=== PATIENT | female | born 1995 | race Caucasian/White ===

== ENCOUNTER → 2019-09-05 14:58 | Outpatient (BNVA) | payer SELFPAY | PROVIDERS: Family Provider Nurse Practitioner; PCP Nurse Practitioner; Visit Provider Nurse Practitioner | DX: R35.0 Frequency of micturition (principal); Z12.4 Encounter for screening for malignant neoplasm of cervix; Z11.3 Encounter for screening for infections with a predominantly sexual mode of transmission; N72 Inflammatory disease of cervix uteri | CPT/HCPCS: 81000; 87491; 87591; 88175 ==

== ENCOUNTER → 2020-01-05 15:03 | Outpatient (BNVA) | payer OTHER, SELFPAY | PROVIDERS: Family Provider Nurse Practitioner; PCP Nurse Practitioner; Visit Provider Nurse Practitioner Family | DX: Z11.59 Encounter for screening for other viral diseases (principal) | CPT/HCPCS: 87635 ==

== ENCOUNTER → 2020-02-25 13:03 | Outpatient (BNVA) | payer OTHER, SELFPAY | PROVIDERS: Family Provider Nurse Practitioner; PCP Nurse Practitioner; Visit Provider Nurse Practitioner | DX: Z11.59 Encounter for screening for other viral diseases (principal) | CPT/HCPCS: 87635 ==

== ENCOUNTER 2021-11-30 19:04 | Emergency (ER) | payer OTHER, SELFPAY ==
[2021-11-30 19:07] VITALS: BP 123/51; PULSE 100; RESP 16; TEMP 36.5; O2SAT 100
--- NOTE | 2021-11-30 19:21 | W.ED.HA ---
HPI - Headache General: Chief Complaint: Headache Stated Complaint: dizzy, headache Time Seen by Provider: 11/30/21 19:19 History of Present Illness: 25-year-old female comes in today for complaints of severe headache. Patient reports that this is the worst headache she is ever had. Patient does occasionally get headaches. Grandmother reports that she often gets headaches and thinks that patient might need to have preventative medication. Patient is recently just moved back to [place]. Patient denies any fever or chills. Patient does report light sensitivity, blurry vision, nausea and vomiting. Associated symptoms: Deny fever(s) Review of Systems Const: Denies: fever(s) Eyes: Reports: blurry vision Musc: Reports: neck pain Neuro: Reports: headache(s) PFSH ED PFSH: Medical History (Updated 11/30/21 @ 21:00 by GERARDO Carranza) Situational anxiety Surgical History No history of previous surgery Family History Other Diabetes Heart disease Hyperlipidemia Hypertension Denies family history of Bleeding disorder Social History Smoking and tobacco status: current every day smoker e-cigarettes Second hand smoke exposure: No Smoking risk assessment/counseling performed?: No Alcohol intake: current Alcohol intake frequency: holidays/special occasions only Desire information about alcohol rehabilitation?: No Counseling given: No Desire information about substance/drug rehabilitation?: No Counseling given: No Adopted: No Caregiver/support person: No Lives independently: Yes Household members: family Housing: House Marital status: Single Number of children: 0 Highest education level completed: High School Graduate service: No Current occupational status: employed Pets and animals: Yes History of recent travel: No Current gender identity: Female Female Reproductive History: Date of last menstrual period: 09/15/19 Physical Exam Const: COMMON NORMALS: alert HENMT: COMMON NORMALS: normocephalic HEAD & SCALP: normocephalic Neck/C-Spine: COMMON NORMALS: full ROM CERVICAL SPINE: No Cervical spine tenderness and Yes Paracervical muscle tenderness Resp: COMMON NORMALS: normal respiratory effort Cardio: COMMON NORMALS: regular rate RATE: regular rate GI: COMMON NORMALS: Soft to palpation and non-tender PALPATION: Yes Soft to palpation Extremity: COMMON NORMALS: full ROM and no pedal edema Neuro: SENSORIUM/ORIENTATION: Yes alert Skin: COMMON NORMALS: no rashes or lesions noted GENERAL SKIN EXAM: no rashes or lesions noted Course Vital Signs: Vital signs: Vital Signs Temperature 97.7 F 11/30/21 19:07 Pulse Rate 94 11/30/21 20:38 Respiratory Rate 18 11/30/21 20:38 Blood Pressure 132/64 11/30/21 20:38 Pulse Oximetry 100 11/30/21 20:38 Oxygen Delivery Me thod 11/30/21 19:07 MDM - Headache Medical Decision Making Patient comes in today with worsening normal headache. Patient states that she occasionally will get headache with the last 1 being 3 weeks ago. Patient reports that this headache is more severe with blurring of vision and light sensitivity along with nausea and vomiting. On exam patient some paraspinous muscle tenderness. Respirations are even lungs are clear to auscultation. No focal deficits neural deficits are noted. No meningeal signs are noted. Vital signs are normal. Differential diagnosis includes tension headache, migraine headache, malingering, intracranial mass or bleeding. Patient had resolution of headache after being given 10 mg of Reglan, 15 mg of Toradol, and 6 mg of dexamethasone IV. CT of the head was unremarkable. CBC CMP and hCG were unremarkable. Recommended patient follow-up with primary care for further evaluation and consideration of prophylaxis therapy. Patient reported understanding agreed to plan. Lab Data : 11/30/21 19:40 11/30/21 19:[address] 11/30/21 19:25 IMPRESSION: No CT evidence of acute intracranial pathology. Laboratory Results WBC 10.7 10^3/uL (4.0-10.0) H 11/30/21 19:40 RBC 4.38 10^6/uL (4.1-5.3) 11/30/21 19:40 Hgb 12.9 g/dL (11.5-15.3) 11/30/21 19:40 Hct 39.6 % (37.0-47.0) 11/30/21 19:40 MCV 90.4 fl (81-99) 11/30/21 19:40 MCH 29.5 pg (28.0-34.0) 11/30/21 19:40 MCHC 32.6 g/dL (30.0-36.0) 11/30/21 19:40 RDW 12.4 % (12.1-15.1) 11/30/21 19:40 Plt Count 318 10^3/cmm (130-400) 11/30/21 19:40 MPV 9.7 fL (7.4-10.4) 11/30/21 19:40 Neut % (Auto) 76.6 % 11/30/21 19:40 Lymph % (Auto) 16.3 % 11/30/21 19:40 [place] % (Auto) 5.1 % 11/30/21 19:40 Eos % (Auto) 1.2 % 11/30/21 19:40 Baso % (Auto) 0.5 % 11/30/21 19:40 Neut # (Auto) 8.16 10^3/uL (1.8-7.7) H 11/30/21 19:40 Lymph # (Auto) 1.7 10^3/uL (0.8-4.8) 11/30/21 19:40 [place] # (Auto) 0.5 10^3/uL (0.2-0.9) 11/30/21 19:40 Eos # (Auto) 0.1 10^3/uL (0.0-0.8) 11/30/21 19:40 Baso # (Auto) 0.1 10^3/uL (0.0-0.1) 11/30/21 19:40 Nucleated RBC % (auto) 0 % 11/30/21 19:40 Nucleated RBCs # 0.0 /100WBC 11/30/21 19:40 Sodium 140 mmol/L (136-145) 11/30/21 19:40 Potassium 3.9 mmol/L (3.5-5.1) 11/30/21 19:40 Chloride 103 mmol/L (98-107) 11/30/21 19:40 Carbon Dioxide 22 mmol/L (22-29) 11/30/21 19:40 Anion Gap 18.9 (5-19) 11/30/21 19:40 BUN 8 mg/dL (6-20) 11/30/21 19:40 Creatinine 0.7 mg/dL (0.5-0.9) 11/30/21 19:40 GFR Calculation 102.8 mL/min (90-130) 11/30/21 19:40 Glucose 91 mg/dL (65-115) 11/30/21 19:40 Calculated Osmolality 288 mOsm/kg (285-295) 11/30/21 19:40 Calcium 9.3 mg/dL (8.5-10.5) 11/30/21 19:40 Total Bilirubin 0.2 mg/dL (0.15-1.2) 11/30/21 19:40 AST 16 U/L (0-32) 11/30/21 19:40 ALT 14 U/L (0-33) 11/30/21 19:40 Alkaline Phosphatase 125 IU/L (35-105) H 11/30/21 19:40 Total Protein 7.1 g/dL (6.6-8.7) 11/30/21 19:40 Albumin 4.3 g/dL (3.5-5.2) 11/30/21 19:40 Globulin 2.8 g/dL (1.3-4.6) 11/30/21 19:40 HCG, Qual Negative (Negative) 11/30/21 19:40 Discharge Plan Discharge Patient Disposition: Home Clinical Impression: Migraine Qualifiers: Migraine type: unspecified Status migrainosus presence: without status migrainosus Intractability: not intractable Qualified Code(s): G43.909 - Migraine, unspecified, not intractable, without status migrainosus Condition: Stable Prescriptions: No Action metronidazole [Metrogel Vaginal] 0.75 % gel 1 appful VAGINAL DAILY 5 Days Qty: 70 0RF etonogestrel-ethinyl estradiol [NuvaRing] 0.12-0.015 mg/24 hr ring 1 vag ring VAGINAL .wear for 3 weeks Qty: 3 3RF methylprednisolone [Medrol (Chago)] 4 mg tablets,dose pack See Rx Instructions PO PER PKG DIR Qty: 21 0RF Rx Instructions: PO PER PKG DIR Discharge Orders: Discharge ED (Routine); Ordered 11/30/21 Ordered By: Truman Saucedo Discharge Diet: Usual diet Discharge Activity: Increase activity as tolerated Patient Instructions: Headache - Migraine (Adult) Activity Restrictions/Additional Instructions: Drink plenty of fluids. Activity as tolerated. Continue with routine care as directed. Follow-up with primary care regarding concerns of recurrent migraines and possible prophylactic therapy. Return to ER for new concerns or worsening symptoms. Coding Level of Care Code ED Extraction Supervisor for Allen Fwmaikel Exam Comprehensive
--- NOTE | 2021-11-30 19:25 | CTR_ITS ---
PROCEDURE INFORMATION: Exam: CT Head Without Contrast Exam date and time: 11/30/2021 8:25 PM Age: 25 years old Clinical indication: Pain; Headache; Migraine; Additional info: Headache, severe TECHNIQUE: Imaging protocol: Computed tomography of the head without contrast. Axial, coronal and sagittal reformatted images were created and reviewed. Radiation optimization: All CT scans at this facility use at least one of these dose optimization techniques: automated exposure control; mA and/or kV adjustment per patient size (includes targeted exams where dose is matched to clinical indication); or iterative reconstruction. COMPARISON: No relevant prior studies available. RADIATION DOSE METRICS: Total DLP (mGy-cm): 952.62 FINDINGS: Brain: No CT evidence of acute intracranial hemorrhage or acute territorial infarction. No significant mass effect or midline shift. Basal cisterns patent. Cerebral ventricles: Normal in size and configuration. Paranasal sinuses: Unremarkable. No fluid levels. Mastoid air cells: Grossly unremarkable. Bones/joints: No acute osseous abnormality. Soft tissues: Grossly unremarkable. CT/CT head wo con* [id number] IMPRESSION: No CT evidence of acute intracranial pathology.
[2021-11-30] MEDS: ketorolac 30 mg/mL INJ 15 MG IVP (19:40)
[2021-11-30] MEDS: sodium chloride 0.9% 500 ML 999 ML IV (19:40)
[2021-11-30] MEDS: dexamethasone 10 mg/mL INJ 6 MG IVP (19:42)
[2021-11-30] MEDS: metoclopramide 5 mg/mL SDV 2 mL 10 MG IVP (19:44)
[2021-11-30 20:05] LABS: Basophils # 0.1 10^3/uL (0.0-0.1); Basophils % 0.5 %; Eosinophils # 0.1 10^3/uL (0.0-0.8); Eosinophils % 1.2 %; Hematocrit 39.6 % (37.0-47.0); Hemoglobin 12.9 g/dL (11.5-15.3); Lymphocytes # 1.7 10^3/uL (0.8-4.8); Lymphocytes % 16.3 %; Mean Corpuscular HGB Conc 32.6 g/dL (30.0-36.0); Mean Corpuscular Hemoglobin 29.5 pg (28.0-34.0); Mean Corpuscular Volume 90.4 fl (81-99); Mean Platelet Volume 9.7 fL (7.4-10.4); Monocytes # 0.5 10^3/uL (0.2-0.9); Monocytes % 5.1 %; Neutrophils # 8.16 10^3/uL (1.8-7.7); Neutrophils % 76.6 %; Nucleated Red Blood Cells % 0 %; Platelet Count 318 10^3/cmm (130-400); Red Blood Count 4.38 10^6/uL (4.1-5.3); Red Cell Distribution Width 12.4 % (12.1-15.1); White Blood Count 10.7 10^3/uL (4.0-10.0)
[2021-11-30 20:20] LABS: HCG, Serum Qual Negative (Negative)
[2021-11-30 20:28] LABS: Alanine Aminotransferase 14 U/L (0-33); Albumin Level 4.3 g/dL (3.5-5.2); Alkaline Phosphatase 125 IU/L (35-105); Anion Gap 18.9 (5-19); Aspartate Amino Transferase 16 U/L (0-32); Blood Urea Nitrogen 8 mg/dL (6-20); Calcium 9.3 mg/dL (8.5-10.5); Carbon Dioxide 22 mmol/L (22-29); Chloride 103 mmol/L (98-107); Globulin 2.8 g/dL (1.3-4.6); Glomerular Filtration Rate 102.8 mL/min (90-130); Glucose 91 mg/dL (65-115); Osmolality Calculated 288 mOsm/kg (285-295); Potassium 3.9 mmol/L (3.5-5.1); Sodium 140 mmol/L (136-145); Total Bilirubin 0.2 mg/dL (0.15-1.2); Total Protein 7.1 g/dL (6.6-8.7)
[2021-11-30 20:38] VITALS: BP 132/64; PULSE 94; RESP 18; O2SAT 100
[2021-11-30 21:21] VITALS: BP 116/71; PULSE 97; RESP 16; O2SAT 97
== END 2021-11-30 21:23 | disposition home or self-care (01) ==
PROVIDERS: Emergency Provider Nurse Practitioner Family
DX: G43.909 Migraine, unspecified, not intractable, without status migrainosus (principal); F17.290 Nicotine dependence, other tobacco product, uncomplicated
CPT/HCPCS: 70450; 80053; 84703; 85025; 96361; 96374; 96375; 99285; J1100; J1885; J2765; J7040

== ENCOUNTER 2022-05-12 15:10 | Outpatient (CLI) | payer OTHER, SELFPAY ==
--- NOTE | 2022-05-12 15:26 | XR_ITS ---
WS: [id number] Exam: XR finger RT min 2V 63950 Date/Time of Exam: 05/12/2022 3:30 PM Reason For Exam: S69.90XA - Unspecified injury of unspecified wrist, hand ... The right thumb is targeted for radiographic evaluation. No fracture or dislocation. Normal soft tiss ues. XR/XR finger RT min 2V 30075 IMPRESSION: 1. Normal right thumb.
== END 2022-05-12 15:11 | disposition home or self-care (01) ==
PROVIDERS: PCP Nurse Practitioner; Visit Provider Nurse Practitioner Family
DX: M79.646 Pain in unspecified finger(s) (principal); S69.90XA Unspecified injury of unspecified wrist, hand and finger(s), initial encounter; X58.XXXA Exposure to other specified factors, initial encounter
CPT/HCPCS: 73140

== ENCOUNTER → 2023-04-14 08:59 | Outpatient (BNVA) | payer OTHER, SELFPAY | PROVIDERS: PCP Nurse Practitioner; Visit Provider Family Medicine Adult Medicine | DX: Z20.822 Contact with and (suspected) exposure to COVID-19 (principal); J32.9 Chronic sinusitis, unspecified; J02.9 Acute pharyngitis, unspecified; R76.8 Other specified abnormal immunological findings in serum; U07.1 COVID-19; J30.9 Allergic rhinitis, unspecified; J01.40 Acute pansinusitis, unspecified; J30.2 Other seasonal allergic rhinitis | CPT/HCPCS: 87426 ==

== ENCOUNTER → 2023-05-26 15:45 | Outpatient (BNVA) | payer OTHER, SELFPAY | PROVIDERS: PCP Nurse Practitioner; Visit Provider Nurse Practitioner Family | DX: R50.9 Fever, unspecified (principal) | CPT/HCPCS: 87400 ==

== ENCOUNTER → 2023-06-11 16:36 | Outpatient (BNVA) | payer OTHER, SELFPAY | PROVIDERS: PCP Nurse Practitioner; Visit Provider Nurse Practitioner Family | DX: R25.1 Tremor, unspecified (principal) | CPT/HCPCS: 80053; 84443; 85025 ==

== ENCOUNTER 2023-06-19 09:29 | Emergency (ER) | payer OTHER, SELFPAY ==
[2023-06-19 09:31] VITALS: BP 120/78; PULSE 100; RESP 18; TEMP 36.6; O2SAT 99
--- NOTE | 2023-06-19 09:33 | ECG_ITS ---
[facility] Test Date: 2023-06-19 Pat Name: Aarti Patel Department: Room: Gender: Female Perforating Machine Operator: : 1995 Requested By: Romina Peralta Order Number: [id number] Meryl MD: Yaneth Hooker M.D. Measurements Intervals [place] Rate: 99 P: 34 LA: 108 QRS: 64 QRSD: 92 T: 0 QT: 320 QTc: 412 Interpretive Statements SINUS RHYTHM WITH SHORT LA INTERVAL NONSPECIFIC T-WAVE ABNORMALITY No previous ECG available for comparison Electronically Signed On 06-19-2023 18:02:52 SWIMMING TEACHER by Yaneth Hooker M.D. [id number]
--- NOTE | 2023-06-19 09:37 | XR_ITS ---
WS: [id number] Exam: XR chest 1V portable [id number] Date/Time of Exam: 06/19/2023 10:04 AM Reason For Exam: chest pain No priors. Findings: The lungs are clear and fully expanded. Costophrenic angles are sharp. No infiltrates. Bronchovascula r relief appears normal. Cardiac silhouette is unremarkable. Bony elements are intact. IMPRESSION: Unremarkable chest radiograph.
--- NOTE | 2023-06-19 09:44 | ED_ITS ---
HPI - Chest Pain General: Chief Complaint: Chest Pain Stated Complaint: Chest pains Time Seen by Provider: 06/19/23 09:30 Source: patient Mode of arrival: ambulatory Limitations: no limitations History of Present Illness: Patient is a 27-year-old female presents to ED today with multiple complaints. Patient states over the past several years, starting back when she was a teenager, she has had tremors. She states these are mainly located to her hands and arms but sometimes her legs will shake as well. She states she is not really had any formal evaluation for this. She states it causes her quite a bit of anxiety as people will comment on her shaking like a Chihuahua . She states she cannot cook at home because she cannot even hold a knife without cutting herself due to the tremors. She also has complaints of diffuse joint pains that have been present for a few years as well. She reports having to take Excedrin daily because otherwise the pains are crippling. She reports intermittent nausea and headaches. She believes she takes Topamax for her headaches. She does feel like her migraines are fairly well-controlled. She states over the past several weeks she has had intermittent episodes of chest pain and feeling like her heart is racing. She states she does wear an Apple Watch and the highest her heart rate has ever got was 120. Patient states she saw her PCP approximately week ago for some of the symptoms who ordered blood work as a starting point. Patient states she does struggle immensely with depression and anxiety. She feels like her symptoms have been unaffected by her anxiety/depression medication however does state when her mental health is not right her symptoms seem worse but they do not fully alleviate when she is clear headed . She follows up with Dr. Gomez at [facility]. She has seen a police chief deputy in the past regarding some intermittent rashes/hives and scalp changes. This was at [facility] in [place]. According to patient they pretty much told me I was allergic to myself . complaint: chest pain and other (tremor, headaches, nausea, joint pains) Onset (ago): month(s) Timing of current episode: episodic and constant Prior episodes: Yes Pain location: left chest Pain radiation: none Relieving factors: nothing Exacerbating factors: nothing Associated symptoms: Reports nausea and palpitations; Deny abdominal pain, dyspnea, fever(s), syncope or vomiting Risk Factors: Coronary artery disease risk factors: none Thoracic aortic dissection risk factors: none Related Data: On Oral Contraceptives: Yes Review of Systems Const: Denies: fever(s), chills or body aches Eyes: Denies: change in vision, blurry vision, photophobia, floaters or seeing flashes Card: Reports: chest pain and palpitations; Denies: irregular heart rhythm, edema, swelling of feet/ankles, lightheadedness, syncope, pre-syncope, dyspnea on exertion, orthopnea, leg pain with exertion or acrocyanosis Resp: Denies: dyspnea, productive cough or pain on inspiration GI: Reports: nausea; Denies: abdominal pain, vomiting, heartburn or diarrhea : Denies: flank pain, difficulty voiding, dysuria, urinary frequency, urinary urgency or urinary hesitancy Musc: Reports: joint pain; Denies: neck pain, back pain, joint swelling, joint redness, joint warmth or limited range of motion Skin/Breast: Reports: rash and pruritus Neuro: Reports: headache(s); Denies: numbness in extremities, weakness in extremities, sensory changes, lack of coordination, difficulty walking, dizziness or confusion PFSH ED PFSH: Medical History Allergic rhinitis due to allergen COVID SARS-CoV-2 antibody positive Pharyngitis Exposure to COVID-19 virus Psychiatric care Situational anxiety Surgical History No history of previous surgery Family History Other Diabetes Heart disease Hyperlipidemia Hypertension Denies family history of Bleeding disorder Physical Exam Const: COMMON NORMALS: no acute distress, average body habitus, patient oriented x3, no limitations, healthy appearing, alert and well nourished GENERAL APPEARANCE: cooperative and anxious (anxious and tearful at times during history) ORIENTATION/CONSCIOUSNESS: Yes awake, Yes oriented to person, Yes oriented to place and Yes oriented to time OTHER: significant resting tremor mainly noted to hands at times during her exami nation; the severity of the tremor does seem to fluctuate and at times is barely noticeable while at others it is significantly obvious HENMT: COMMON NORMALS: normocephalic and atraumatic HEAD & SCALP: normal to inspection, normocephalic and atraumatic FACE & SINUS: normal facial exam Eye: GENERAL EYE: appearance normal, both eyes and all related structures Neck/C-Spine: COMMON NORMALS: full ROM, no lymphadenopathy, supple and no meningeal signs Chest: COMMONS NORMALS: normal inspection of the chest OTHER: TTP L anterior chest wall tender to palpation Resp: COMMON NORMALS: normal respiratory effort and clear to auscultation bilaterally AUSCULTATION: clear to auscultation bilaterally Cardio: COMMON NORMALS: regular rate and regular rhythm RATE: regular rate RHYTHM: regular rhythm GI: COMMON NORMALS: Normal to inspection, nondistended, normoactive bowel sounds present, Soft to palpation, non-tender, No hepatosplenomegaly present and no masses PALPATION: Yes Soft to palpation and Yes No hepatosplenomegaly present : COMMON NORMALS: Yes no CVA tenderness BLADDER/KIDNEY EXAM: Yes no CVA tenderness Back/Pelvis: COMMON NORMALS: no CVA tenderness and thoracic and lumbar spine normal to inspection Extremity: COMMON NORMALS: normal to inspection GENERAL: Yes normal exam except as noted Neuro: DRAGAN COMA SCALE: document GCS findings Dragan coma scale eye opening: Spontaneous [place] coma scale verbal response: Orientated Dragan coma scale motor response: Obey commands Dragan coma scale total score: 15 COMMON NORMALS: patient oriented x3, CN's II-XII intact bilaterally, moves all extremities, no focal motor deficits, no sensory deficits noted and gait normal SENSORIUM/ORIENTATION: Yes alert, Yes oriented to person, Yes oriented to place and Yes oriented to time MENINGEAL SIGNS: Yes no meningeal signs Skin: COMMON NORMALS: no rashes or lesions noted GENERAL SKIN EXAM: no rashes or lesions noted Course Vital Signs: Vital signs: Vital Signs Temperature 97.8 F 06/19/23 09:31 Pulse Rate 100 06/19/23 09:31 Respiratory Rate 18 06/19/23 09:31 Blood Pressure 120/78 06/19/23 09:31 Pulse Oximetry 99 06/19/23 09:31 Oxygen Delivery Me thod Room Air 06/19/23 09:31 MDM - Chest Pain Medical Decision Making Patient is a 27-year-old female here for multiple complaints including a chronic tremor, migraine headaches, intermittent chest pains, and diffuse joint pains. Patient just had blood work consisting of a CBC, CMP, TSH ran through her primary care provider. These were reviewed and normal. I do not feel there is any benefit in repeating these labs today. I spent a considerable amount of time with patient during her history and examination. Her symptoms cause her considerable amount of distress. She is embarrassed by her tremor. She states she cannot even cook for herself at home because she cannot hold a knife secondary to the tremors in her hand. Her joint pain disables her from enjoying life. She has other nonspecific symptoms with the headaches, nausea, palpitations, intermittent chest pains, skin changes. From an ED standpoint this patient is clear for discharge however she does need follow-up in regards to her symptoms. Certainly she does have significant anxiety and depression as well as a diagnosis of PTSD and some of this could be manifestations of those however other etiologies need to be excluded. Her tremor seems to be her most bothersome and most prolonged symptom therefore we will start there. We did discuss starting propranolol today but ultimately I would like her to see neurology first. Case management referral has been placed for this. Recommend she continue following up with her PCP. We also did discuss possibly rheumatology evaluation at some point. Medical Records I reviewed the patient's medical records. Lab Data I reviewed the patient's lab results. XR interpretation done by ED provider, pending radiology final review Discharge Plan Discharge Condition: Stable Prescriptions: No Action topiramate [Topamax] 25 mg tablet 25 mg PO BID Qty: 60 4RF etonogestrel-ethinyl estradiol [NuvaRing] 0.12-0.015 mg/24 hr ring 1 vag ring VAGINAL .wear for 3 weeks Qty: 3 12RF fluoxetine [Prozac] 40 mg capsule 40 mg PO DAILY Qty: 30 2RF loratadine 10 mg tablet 10 mg PO DAILY PRN (Reason: allergy symptoms) Qty: 90 0RF Aspir-81 81 mg Tablet,Delayed Release (Dr/Ec) 81 mg PO DAILY PRN (Reason: Chest Pain) Excedrin Migraine 250-250-65 mg Tablet 1 tab PO Q6H PRN (Reason: headache pain) Referrals: Thania Sumner FNP-C [Primary Care Provider] - Coding Level of Care Code ED Blue Leather Setter for Allen Owen
--- NOTE | 2023-06-19 10:30 | PC.PHAR ---
According to fill dates, pt is non compliant on most medications. She states she forgets to take.
[2023-06-19 10:34] VITALS: BP 128/83; PULSE 85; RESP 16; O2SAT 96
--- NOTE | 2023-06-19 12:07 | DCPLANNER ---
Message was sent to neurology on 06/19/23 at 2600. [facility] to contact patient for appt.
--- NOTE | 2023-07-08 13:06 | DCPLANNER ---
Spoke with Cheryl in Neurology she will call patient today to get her scheduled-07/08/23 @2177
== END 2023-06-19 10:39 | disposition home or self-care (01) ==
PROVIDERS: Emergency Provider Physician Assistant; PCP Nurse Practitioner
DX: R07.9 Chest pain, unspecified (principal); R25.1 Tremor, unspecified; Z79.82 Long term (current) use of aspirin
CPT/HCPCS: 71045; 93005; 99284

== ENCOUNTER 2023-06-30 08:32 | Outpatient (CLI) | payer SELFPAY ==
[2023-06-30 09:02] LABS: HF Add Manual Diff No
[2023-06-30 09:04] LABS: Basophils % 0.5 %; Eosinophils # 0.1 10^3/uL (0.0-0.8); Eosinophils % 1.7 %; Hematocrit 40.1 % (36-47); Lymphocytes # 2.1 10^3/uL (0.8-4.8); Lymphocytes % 25.9 %; Mean Corpuscular HGB Conc 33.2 g/dL (30-55); Mean Corpuscular Hemoglobin 29.8 pg (27-33); Mean Corpuscular Volume 89.7 fl (85-98); Mean Platelet Volume 9.4 fL (7.4-10.4); Monocytes # 0.5 10^3/uL (0.2-0.9); Monocytes % 5.8 %; Neutrophils # 5.44 10^3/uL (1.8-7.7); Nucleated Red Blood Cells % 0 %; Platelet Count 239 10^3/cmm (157-399); Red Blood Count 4.47 10^6/uL (3.85-5.65); Red Cell Distribution Width 12.6 % (12.1-15.1); White Blood Count 8.25 10^3/uL (3.29-11.43)
[2023-06-30 10:13] LABS: Estmated Average Glucose 91; Hemoglobin A1C 4.8 % (4.0-6.0)
[2023-07-02 08:15] LABS: Alanine Aminotransferase 17 U/L (0-33); Alkaline Phosphatase 138 U/L (35-105); Aspartate Amino Transferase 17 U/L (0-32); Blood Urea Nitrogen 7 mg/dL (6-20); Calcium 8.9 mg/dL (8.5-10.5); Carbon Dioxide 23 mmol/L (22-29); Chloride 101 mmol/L (98-107); Cholesterol 169 mg/dL (0-200); Globulin 3.1 g/dL (1.3-4.6); Glomerular Filtration Rate 101.1 mL/min (90-130); Glucose 89 mg/dL (65-115); HDL Cholesterol 47 mg/dL (60-100); LDL Cholesterol Calculated 103 mg/dL (50-129); LDL HDL Ratio 2.19 RATIO (0.00-3.22); Osmolality Calculated 281 mOsm/kg (285-295); Sodium 137 mmol/L (136-145); Total Bilirubin 0.3 mg/dL (0.15-1.2); Total Protein 7.1 g/dL (6.6-8.7); Triglycerides 96 mg/dL (0-150)
[2023-07-02 08:36] LABS: Anion Gap 17.4 (5-19); Potassium 4.4 mmol/L (3.5-5.1)
== END 2023-06-30 08:33 | disposition home or self-care (01) ==
LOC: LAB 08:33
PROVIDERS: PCP Nurse Practitioner; Visit Provider Dermatology
DX: Z01.89 Encounter for other specified special examinations (principal)
CPT/HCPCS: 36415

== ENCOUNTER → 2023-07-02 16:09 | Outpatient (BNVA) | payer OTHER, SELFPAY | PROVIDERS: PCP Nurse Practitioner; Visit Provider Nurse Practitioner | DX: M79.10 Myalgia, unspecified site (principal) | CPT/HCPCS: 85651; 86140; 86160; 86162; 86235; 86255; 86376; 86431 ==

== ENCOUNTER → 2023-07-09 10:23 | Outpatient (BNVA) | payer OTHER, SELFPAY | PROVIDERS: PCP Nurse Practitioner; Visit Provider Psychiatry & Neurology Neurology | DX: R25.1 Tremor, unspecified (principal); R51.9 Headache, unspecified; M79.10 Myalgia, unspecified site; B88.2 Other arthropod infestations; J01.40 Acute pansinusitis, unspecified; M54.2 Cervicalgia; R29.2 Abnormal reflex | CPT/HCPCS: 36415; 82607; 82652; 82746; 83735; 83921 ==

== ENCOUNTER 2023-07-27 06:55 | Outpatient (CLI) | payer OTHER, SELFPAY ==
--- NOTE | 2023-07-27 07:30 | MR_ITS ---
WS: [id number] MRI HEAD WITH CONTRAST TECHNIQUE: Sagittal T1, T2 axial, T2 axial FLAIR, axial susceptibility weighted imaging, axial diffus ion weighted images, and coronal T2 images were obtained. Pre and post-T1 axial and post T1 coronal i mages. ADC and FSPGR images. CLINICAL INFORMATION: R29.2 - Abnormal reflex COMPARISON: 11/30/2021 FINDINGS: No evidence of restricted diffusion to suggest acute ischemia. Ventricular system and basal cisterns are patent. Single tiny punctate focus of T2 hyperintensity in the RIGHT periventricular white matter of doubtful clinical significance. No other suspicious intracranial signal normalities. Normal poste rior fossa. Normal vascular flow voids at the skull base. No extra-axial fluid collections. No mass o r mass effect. Paranasal sinuses and mastoid air cells are well aerated. Normal posterior nasopharynx. No hemosiderin on the susceptibly weighted images. Normal optic chiasm and pituitary infundibulum. No abnormal intracranial enhancement. Normal dural venous sinuses. No other suspicious findings. IMPRESSION: 1. No evidence of restricted diffusion to suggest acute ischemia. 2. Single tiny punctate focus of T2 hyperintensity in the RIGHT periventricular white matter nonspec ific in a patient this age but of doubtful clinical significance. 3. No other suspicious intracranial signal normalities. 4. No abnormal intracranial enhancement. 5. No hemosiderin on the susceptibly weighted images.
[2023-07-27] MEDS: gadobenate dimeglumine 20 mL vial IV (08:10)
--- NOTE | 2023-07-27 08:15 | MR_ITS ---
WS: [id number] MR CERVICAL SPINE WO/W COMPARISON: None. HISTORY: R25.1 - Tremor, unspecified TECHNIQUE: Sagittal T1, T2 and T2 inversion recovery; axial T2, T2 gradient and fiesta. Post gadolini um imaging with fat saturation technique. FINDINGS:Straightening of the normal cervical lordosis. No high grade central canal narrowing. Cord s ignal is normal. No lesions within the cervical cord. No enhancing lesions. No cord atrophy. C2-3: Spinal canal and foramen are patent. C3-4: Spinal canal and foramen are patent. C4-5: Minimal disc bulging. Spinal canal and foramina are patent. Mild facet arthropathy. C5-6: Minimal disc bulging. Spinal canal and foramina are patent. Mild facet arthropathy. C6-7: Spinal canal and foramen are patent. C7-T1: Spinal canal and foramen are patent. IMPRESSION: 1. Straightening of the normal cervical lordosis. No high-grade central canal narrowing. Cord signa l is normal. 2. No lesions within the cervical cord. No enhancing lesions. 3. Minimal disc bulging C4-C5 and C5-C6. Slight effacement of the ventral thecal sac. 4. Mild facet arthropathy C4-C5 and C5-C6. 5. No significant spinal canal or foraminal narrowing.
== END 2023-07-27 06:56 | disposition home or self-care (01) ==
LOC: RAD 06:55
PROVIDERS: PCP Nurse Practitioner; Visit Provider Psychiatry & Neurology Neurology
DX: R25.1 Tremor, unspecified (principal); R29.2 Abnormal reflex
CPT/HCPCS: 70553; 72156; A9577

== ENCOUNTER 2023-10-13 06:00 | Outpatient (CLI) | payer OTHER, SELFPAY | END 2023-10-13 06:01 | disposition home or self-care (01) | LOC: RAD 12-27 06:44 | PROVIDERS: PCP Nurse Practitioner; Visit Provider Psychiatry & Neurology Neurology | DX: R25.1 Tremor, unspecified (principal); R29.2 Abnormal reflex; M54.2 Cervicalgia | CPT/HCPCS: 84439; 84443; 84481; 86376; 86800 ==

== ENCOUNTER → 2023-10-26 10:46 | Outpatient (BNVA) | payer OTHER, SELFPAY | PROVIDERS: PCP Nurse Practitioner; Visit Provider Registered Nurse Neonatal Intensive Care | DX: J02.9 Acute pharyngitis, unspecified (principal); J03.80 Acute tonsillitis due to other specified organisms; B96.89 Other specified bacterial agents as the cause of diseases classified elsewhere | CPT/HCPCS: 87880 ==

== ENCOUNTER 2023-11-23 07:49 | Outpatient (CLI) | payer OTHER, SELFPAY ==
--- NOTE | 2023-11-23 08:00 | MR_ITS ---
WS: [id number] MRA HEAD TECHNIQUE: Axial 3-D TOF images obtained with axial images and axial, sagittal, and coronal 2-D refor matted images. CLINICAL INFORMATION: R25.1 - Tremor, unspecified COMPARISON: None. FINDINGS: Distal vertebral arteries are patent. Basilar artery is patent. Normal vascularity to the ELIGIBILITY ANALYST territo ry bilaterally. Both ICAs are patent at the skull base. Normal vascularity to the IBETH and MCA territories bilaterally . Hypoplastic LEFT A1 segment. Patent anterior communicating artery. MR/MR angio head wo con [id number] IMPRESSION: 1. No evidence of proximal flow-limiting stenosis or aneurysm. 2. Hypoplastic LEFT A1 segment. 3. Otherwise unremarkable MRA.
--- NOTE | 2023-11-23 08:15 | MR_ITS ---
WS: [id number] MRA CAROTID WITHOUT AND WITH GADOLINIUM ENHANCEMENT TECHNIQUE: Axial 2-D TOF and gadolinium bolus images obtained with axial images and axial, sagittal, and coronal 2-D reformatted images. CLINICAL INFORMATION: R25.1 - Tremor, unspecified COMPARISON: None. FINDINGS: RIGHT: RIGHT common carotid artery is patent. No significant RIGHT ICA stenosis. RIGHT ICA is patent to the skull base. LEFT: LEFT common carotid artery is patent. No significant LEFT ICA stenosis. LEFT ICA is patent to t he skull base. LEFT dominant vertebral artery. Smaller but patent RIGHT vertebral artery. Proximal subclavian arteries are patent. MR/MR angio neck w con* [id number] IMPRESSION: Normal neck MRA.
[2023-11-23] MEDS: gadobenate dimeglumine 20 mL vial IV (08:49)
== END 2023-11-23 07:50 | disposition home or self-care (01) ==
LOC: RAD 07:49
PROVIDERS: PCP Nurse Practitioner; Visit Provider Psychiatry & Neurology Neurology
DX: R25.1 Tremor, unspecified (principal); R29.2 Abnormal reflex; M54.2 Cervicalgia
CPT/HCPCS: 70544; 70548; A9577

== ENCOUNTER 2024-01-07 08:02 | Outpatient (CLI) | payer OTHER, SELFPAY ==
--- NOTE | 2024-01-07 08:30 | US_ITS ---
WS: [id number] ULTRASOUND SOFT TISSUES LEFT forearm HISTORY: R22.32 - Localized swelling, mass and lump, left upper limb COMPARISON: None available. TECHNIQUE: 2-D and color Doppler imaging is submitted. Ultrasound is directed over the lateral side of the LEFT forearm as directed by the patient. No edema or soft tissue abnormality. There is no distortion of the fascial planes. No mass identified. Patien t indicates area of concern has resolved within the last several days. US/US soft tissue/extremity [id number] IMPRESSION: Negative ultrasound LEFT forearm.
== END 2024-01-07 08:03 | disposition home or self-care (01) ==
LOC: RAD 08:03
PROVIDERS: PCP Nurse Practitioner; Visit Provider Nurse Practitioner Family
DX: R22.32 Localized swelling, mass and lump, left upper limb (principal)
CPT/HCPCS: 76882

== ENCOUNTER → 2024-04-27 17:21 | Outpatient (BNVA) | payer OTHER, SELFPAY | PROVIDERS: PCP Nurse Practitioner; Visit Provider Nurse Practitioner | DX: Z12.4 Encounter for screening for malignant neoplasm of cervix | CPT/HCPCS: 88175 ==

== ENCOUNTER 2024-10-30 21:25 | Outpatient (CLI) | payer OTHER, SELFPAY ==
[2024-10-30] VITALS (11 sets, daily range): BP systolic 111–134; BP diastolic 59–71; PULSE 86–98; RESP 16; O2SAT 98; BMI 32.1
--- NOTE | 2024-10-30 21:46 | USR_ITS ---
PROCEDURE INFORMATION: Exam: US , Limited Exam date and time: 10/30/2024 10:28 PM Age: 28 years old Clinical indication: Injury or trauma; Fall; Other: Patient fell on belly; ; Additional info: Fall, check placenta for abruption LABS AND CLINICAL REPORTS: Gestational age (Established): 23 w 6 d Estimated due date (Established): 02/20/2025 TECHNIQUE: Imaging protocol: Real-time ultrasound of the maternal uterus with image documentation. Exam focused on the clinical indication. COMPARISON: US soft tissue/extremity [id number] 01/07/2024 8:22 AM FINDINGS: Gestation: Single live intrauterine fetus in vertex presentation. heart rate: 139 bpm Placenta: Placenta is posterior. MATERNAL: Cervix: Cervical length measures 4.1 cm. US/US OB limited [id number] IMPRESSION: Single live intrauterine fetus in vertex presentation.
== END 2024-10-30 23:56 | disposition home or self-care (01) ==
LOC: OPOB 21:31 → OBGYN 21:32
PROVIDERS: PCP Nurse Practitioner; Visit Provider Obstetrics & Gynecology
DX: O26.899 Other specified pregnancy related conditions, unspecified trimester (principal); Z3A.00 Weeks of gestation of pregnancy not specified; W18.30XA Fall on same level, unspecified, initial encounter
CPT/HCPCS: 36415; 76815; 86850; 86900; 99211